=== PATIENT | male | born 1980 | race Caucasian/White ===

== ENCOUNTER 2019-10-21 12:22 | Observation (INO) ==
[~2019-10-21 12:22] MED LIST: DIPRIVAN VIAL ONE; NEOSTIGMINE INJ ONE; NORCURON INJ 10 MG VIAL ONE; QUELICIN (OR ANECTINE) ONE; ROBINUL ONE; ULTANE GAS IN ONE; VERSED ONE; ZOFRAN INJ 4 MG VIAL ONE
[2019-10-21 12:28] VITALS: BMI 54.8
--- NOTE | 2019-10-21 12:57 | DR.EXTPAIN ---
HPI Time seen Time Seen by Provider: 10/21/19 12:31 PCP Primary Care Physician: ned Complaint/Symptoms Chief Complaint:: pt was here monday and was dx with stones in his gallbladder and was told by er doctor to come back to the er. right side of abd and right upper chest pain COVID-19 Coronavirus risk:travel/contact w/high risk person: No Has patient experienced Coronavirus symptoms: No Nurses notes reviewed Nurses Notes Review: Yes Source History Provided: Patient Mode of arrival Mode of Arrival: Ambulatory Timing Onset of Chief Complaint: 10/18/19 Associated signs and symptoms Associated Signs and Symptoms: Abdominal Pain PMH PMH Past Medical History: Yes Past Medical History: GERD Past Surgical History: No Family History History of Family Medical Conditions: No Social History Does patient currently use any type of tobacco product: No Have you used tobacco products in the last 12 months: No Type of Tobacco Use: None Does any household member use tobacco: No Alcohol Use: None Do you use any recreational Drugs:: No Lives With: Family Lives Where: Home Travel Risk Coronavirus risk:travel/contact w/high risk person: No Has patient experienced Coronavirus symptoms: No Infectious screening In the last 2 months have you had wt loss of >10#?: NO Have you had fever, night sweats or hemotysis?: No Have you traveled outside the country in the last 6 months?: No Isolation: Standard ROS Review of Systems Constitutional: No Symptoms Reported Eyes: No Symptoms Reported ENTM: No Symptoms Reported Respiratoy: No Symptoms Reported Cardiovascular: No Symptoms Reported Gastrointestinal/Abdominal: Abdominal Pain and Nausea Genitourinary: No Symptoms Reported Neurological: No Symptoms Reported Musculoskeletal: No Symptoms Reported Integumentary: No Symptoms Reported Hematologic/Lymphatic: No Symptoms Reported Endocrine: No Symptoms Reported Psychiatric: No Symptoms Reported All Other Systems: Reviewed and Negative PE Vital Signs Vitals: Temperature 98.2 F Pulse Rate 96 Respiratory Rate 16 Blood Pressure [Left Arm] 155/60 Blood Pressure 153/84 O2 Sat by Pulse Oximetry 98 General Limitations: No Limitations General Appearance: Alert and In No Apparent Distress Head Head Exam: Normal Inspection, Atraumatic and Normocephalic Eyes Eye exam: Normal Appearance and EOMI ENT ENT Exam: Normal Exam and Normal Oropharynx Neck Neck Exam: Normal Inspection, Full ROM and Trachea Midline Chest Chest Inspection: Normal Inspection Respiratory Respiratory Exam: Normal Lung Sounds Bilat; negative Accessory Muscle Use Respiratory Exam: Bilateral: Clear to Auscultation Cardiovascular Cardiovascular Exam: Regular Rate Abdominal Exam Abdominal Exam: Normal Inspection, Normal Bowel Sounds, Soft, Distention (morbid obesity), Tenderness and Guarding; negative Rebound Extremities Extremities Exam: Normal Inspection and Tenderness Upper Extremities Shoulder Exam: Normal Inspection Arm Exam: Normal Inspection Elbow Exam: Normal Inspection Back Back Exam: Normal Inspection Neurological Neurological Exam: Alert, Oriented X3, CN II-XII Intact and Normal Gait Psychiatric Psychiatric Exam: Normal Affect and Normal Mood Skin Skin Exam: Normal Color COURSE Consultation Called: : Call Returned: : Consultation Comments: DR. Santos called and will check patient ROR Labs Reviewed Result Diagrams: 10/21/19 13:09 10/21/19 13:09 Laboratory: WBC 11.0 X10^3/uL (3.6-10.0) H 10/21/19 13:09 RBC 5.32 X10^6/uL (4.7-6.0) 10/21/19 13:09 Hgb 15.0 g/dL (13.5-18.0) 10/21/19 13:09 Hct 43.9 % (42.0-54.0) 10/21/19 13:09 MCV 82.6 fL (80.0-100.0) 10/21/19 13:09 MCH 28.2 pg (27.0-34.0) 10/21/19 13:09 MCHC 34.1 g/dL (33.0-35.0) 10/21/19 13:09 RDW 14.1 % (11.6-16.5) 10/21/19 13:09 Plt Count 247 X10^3/uL (150.0-450.0) 10/21/19 13:09 Plt Count Comment Adequate (ADEQUATE) 10/21/19 13:09 MPV 7.5 fL (7.4-11.0) 10/21/19 13:09 Neut % (Auto) 63.0 % (42.0-75.0) 10/21/19 13:09 Lymph % (Auto) 26.0 % (21.0-51.0) 10/21/19 13:09 [place] % (Auto) 5.0 % (0.0-13.0) 10/21/19 13:09 Eos % (Auto) 4.8 % (0.9-2.9) H 10/21/19 13:09 Baso % (Auto) 1.2 % (0.2-1.0) H 10/21/19 13:09 Neut # (Auto) 7.0 x10^3/uL (2.2-4.8) H 10/21/19 13:09 Lymph # (Auto) 2.9 X10^3/uL (1.3-2.9) 10/21/19 13:09 [place] # (Auto) 0.6 x10^3/uL (0.3-0.8) 10/21/19 13:09 Eos # (Auto) 0.5 x10^3/uL (0.0-0.2) H 10/21/19 13:09 Baso # (Auto) 0.1 X10^3/uL (0.0-0.1) 10/21/19 13:09 Absolute Nucleated RBC 0.1 /100WBC 10/21/19 13:09 Total Counted 100 10/21/19 13:09 Neutrophils % (Manual) 58 % (39-76) 10/21/19 13:09 Band Neutrophils % 4 % (0-10) 10/21/19 13:09 Lymphocytes % (Manual) 24 % (13-43) 10/21/19 13:09 Monocytes % (Manual) 6 % (4-9) 10/21/19 13:09 Eosinophils % (Manual) 8 % (0-6) H 10/21/19 13:09 Plt Morphology Comment Normal (NORMAL) 10/21/19 13:09 RBC Morphology Normal (NORMAL) 10/21/19 13:09 Sodium 134 mmol/L (136-145) L 10/21/19 13:09 Corrected Sodium TNP 10/21/19 13:09 Potassium 3.9 mmol/L (3.5-5.1) 10/21/19 13:09 Chloride 102 mmol/L (98-107) 10/21/19 13:09 Carbon Dioxide 25.7 mmol/L (21-32) 10/21/19 13:09 BUN 8 mg/dL (7-18) 10/21/19 13:09 Creatinine 0.90 mg/dL (0.70-1.30) 10/21/19 13:09 Est GFR (MDRD) Af Amer > 60 (>60) 10/21/19 13:09 Est GFR (MDRD) Non-Af > 60 (>60) 10/21/19 13:09 Glucose 100 mg/dL (65-99) H 10/21/19 13:09 Calcium 8.9 mg/dL (8.5-10.1) 10/21/19 13:09 Corrected Calcium TNP 10/21/19 13:09 Total Bilirubin 0.50 mg/dL (0.2-1.0) 10/21/19 13:09 AST 44 Units/L (15-37) H 10/21/19 13:09 ALT 71 Units/L (12-78) 10/21/19 13:09 Alkaline Phosphatase 86 Units/L (46-116) 10/21/19 13:09 Total Protein 7.6 g/dL (6.4-8.2) 10/21/19 13:09 Albumin 3.4 g/dL (3.4-5.0) 10/21/19 13:09 Globulin 4.2 g/dL (2.5-4.5) 10/21/19 13:09 Albumin/Globulin Ratio 0.8 Ratio (1.1-2.1) L 10/21/19 13:09 Lipase 144 Units/L (73-393) 10/21/19 13:09 Opioid Opioid Risk Tool Age (Cory box if 16-45): No History of Preadolescent Sexual Abuse: No Total: 0 Total Score Risk Category: Low Risk Copyright: Bandar SANCHEZ predicting aberrant behaviors
[2019-10-21 13:17] LABS: BASOPHILS # (AUTO) 0.1 X10^3/uL (0.0-0.1); BASOPHILS % (AUTO) 1.2 % (0.2-1.0); EOSINOPHILS # (AUTO) 0.5 x10^3/uL (0.0-0.2); EOSINOPHILS % (AUTO) 4.8 % (0.9-2.9); HEMATOCRIT 43.9 % (42.0-54.0); LYMPHOCYTES # (AUTO) 2.9 X10^3/uL (1.3-2.9); MEAN CORPUSCULAR HEMOGLOBIN 28.2 pg (27.0-34.0); MEAN CORPUSCULAR HGB CONC 34.1 g/dL (33.0-35.0); MEAN CORPUSCULAR VOLUME 82.6 fL (80.0-100.0); MEAN PLATELET VOLUME 7.5 fL (7.4-11.0); MONOCYTES # (AUTO) 0.6 x10^3/uL (0.3-0.8); PLATELET COUNT 247 X10^3/uL (150.0-450.0); RED BLOOD COUNT 5.32 X10^6/uL (4.7-6.0); RED CELL DISTRIBUTION WIDTH 14.1 % (11.6-16.5)
[2019-10-21 13:28] LABS: ALANINE AMINOTRANSFERASE 71 Units/L (12-78); ALBUMIN 3.4 g/dL (3.4-5.0); ALKALINE PHOSPHATASE 86 Units/L (46-116); ASPARTATE AMINO TRANSFERASE 44 Units/L (15-37); BLOOD UREA NITROGEN 8 mg/dL (7-18); CALCIUM 8.9 mg/dL (8.5-10.1); CARBON DIOXIDE 25.7 mmol/L (21-32); CHLORIDE 102 mmol/L (98-107); LIPASE 144 Units/L (73-393); SODIUM 134 mmol/L (136-145); TOTAL PROTEIN 7.6 g/dL (6.4-8.2); eGFR NON BLACK RACES > 60 (>60)
[2019-10-21 13:41] LABS: BAND NEUTROPHILS % 4 % (0-10); PLATELET MORPHOLOGY COMMENT NORMAL (NORMAL)
--- NOTE | 2019-10-21 14:30 | RAD ---
HISTORYRUQ PAINSTUDYPORTABLE AP CHESTCOMPARISONJULY 2019FINDINGSTHE LUNGS REMAIN CLEAR AND THE HEART AND MEDIASTINUM ARE UNREMARKABLE. THERE IS NO EDEMA OR EFFUSION OR CONGESTION.IMPRESSIONNO EVIDENCE FOR ACTIVE CARDIOPULMONARY DISEASEElectronically signed by: JOHN GARRETT (Oct 21, 2019 14:29:24)
[2019-10-21] MEDS ORDERED: LR 1000 ML IV 1,000 ML IV ONE (14:46)
[2019-10-21] MEDS ORDERED: ANCEF VIAL 1 GRAM ONE (14:46)
[2019-10-21] MEDS ORDERED: NS 100 ML IV 100 ML IV ONE (14:46)
[2019-10-21] MEDS ORDERED: DECADRON INJ ONE (15:02)
[2019-10-21] MEDS ORDERED: DILAUDID INJ ONE ×3 (15:03→17:53)
[2019-10-21] MEDS ORDERED: FENTANYL INJ 100 mcg ONE ×2 (15:03→16:00)
[2019-10-21] MEDS ORDERED: BACTROBAN TOPICAL OINT ONE (17:10)
[2019-10-21] MEDS ORDERED: REGLAN INJ 10 MG VIAL IVP PRN (17:29)
[2019-10-21] MEDS ORDERED: PHENERGAN INJ 25 MG IM PRN (17:29)
[2019-10-21] MEDS ORDERED: ZOFRAN INJ 4 MG VIAL IVP PRN (17:29)
[2019-10-21] MEDS ORDERED: BENADRYL INJ 50 MG VIAL IVP PRN (17:29)
[2019-10-21] MEDS: DILAUDID INJ IVP PRN ×4 (17:42→22:33)
[2019-10-21] MEDS ORDERED: ZOFRAN INJ 4 MG VIAL ONE (17:54)
[2019-10-21] MEDS: D5 1/2 NS 1000 ML 1,000 ML IV SCH (18:22)
[2019-10-22] MEDS: D5 1/2 NS 1000 ML 1,000 ML IV SCH ×3 (03:22→10:35)
[2019-10-22 05:49] LABS: BASOPHILS % (AUTO) 0.2 % (0.2-1.0); HEMATOCRIT 40.5 % (42.0-54.0); HEMOGLOBIN 13.8 g/dL (13.5-18.0); LYMPHOCYTES # (AUTO) 1.3 X10^3/uL (1.3-2.9); LYMPHOCYTES % (AUTO) 9.6 % (21.0-51.0); MEAN CORPUSCULAR HEMOGLOBIN 28.4 pg (27.0-34.0); MEAN CORPUSCULAR VOLUME 83.4 fL (80.0-100.0); MONOCYTES # (AUTO) 0.4 x10^3/uL (0.3-0.8); MONOCYTES % (AUTO) 2.8 % (0.0-13.0); NEUTROPHILS # (AUTO) 11.7 x10^3/uL (2.2-4.8); NEUTROPHILS % (AUTO) 87.4 % (42.0-75.0); PLATELET COUNT 261 X10^3/uL (150.0-450.0); RED BLOOD COUNT 4.85 X10^6/uL (4.7-6.0); RED CELL DISTRIBUTION WIDTH 14.2 % (11.6-16.5); WHITE BLOOD COUNT 13.4 X10^3/uL (3.6-10.0)
[2019-10-22] MEDS: DILAUDID INJ IVP PRN ×2 (05:55→09:02)
[2019-10-22 05:56] LABS: ALANINE AMINOTRANSFERASE 89 Units/L (12-78); ALKALINE PHOSPHATASE 74 Units/L (46-116); ASPARTATE AMINO TRANSFERASE 61 Units/L (15-37); BLOOD UREA NITROGEN 12 mg/dL (7-18); CALCIUM 8.3 mg/dL (8.5-10.1); CARBON DIOXIDE 26.4 mmol/L (21-32); CHLORIDE 103 mmol/L (98-107); COR CA(FOR HYPOALB) 9.1 mg/dL (8.5-10.1); COR NA(FOR HYPERGLY) 140 mmol/L (136-145); SODIUM 137 mmol/L (136-145); TOTAL PROTEIN 7.2 g/dL (6.4-8.2); eGFR NON BLACK RACES > 60 (>60)
[2019-10-22 08:16] VITALS: BP 114/67
--- NOTE | 2019-10-28 22:07 | DR.EXTPAIN ---
HPI Time seen Time Seen by Provider: 10/21/19 12:31 PCP Primary Care Physician: JAXON Complaint/Symptoms Chief Complaint:: pt was here monday and was dx with stones in his gallbladder and was told by er doctor to come back to the er. right side of abd and right upper chest pain COVID-19 Coronavirus risk:travel/contact w/high risk person: No Has patient experienced Coronavirus symptoms: No Source History Provided: Patient Mode of arrival Mode of Arrival: Ambulatory Timing Onset of Chief Complaint: 10/18/19 Associated signs and symptoms Associated Signs and Symptoms: Abdominal Pain PMH PMH Past Medical History: Yes Past Medical History: GERD Past Surgical History: Yes Family History History of Family Medical Conditions: No Family Medical History: Diabetes Mellitus, Cancer and Coronary Artery Disease Social History Does patient currently use any type of tobacco product: No Have you used tobacco products in the last 12 months: No Type of Tobacco Use: None Does any household member use tobacco: No Alcohol Use: Rarely Do you use any recreational Drugs:: No Lives With: Family Lives Where: Home Travel Risk Coronavirus risk:travel/contact w/high risk person: No Has patient experienced Coronavirus symptoms: No Infectious screening In the last 2 months have you had wt loss of >10#?: NO Have you had fever, night sweats or hemotysis?: No Have you traveled outside the country in the last 6 months?: No Isolation: Standard ROS Review of Systems Constitutional: No Symptoms Reported Eyes: No Symptoms Reported ENTM: No Symptoms Reported Respiratoy: No Symptoms Reported Cardiovascular: No Symptoms Reported Gastrointestinal/Abdominal: Abdominal Pain Genitourinary: No Symptoms Reported Neurological: No Symptoms Reported Musculoskeletal: No Symptoms Reported Integumentary: No Symptoms Reported Hematologic/Lymphatic: No Symptoms Reported Endocrine: No Symptoms Reported Psychiatric: No Symptoms Reported All Other Systems: Reviewed and Negative PE Vital Signs Vitals: Temperature 98.3 F Pulse Rate 85 Respiratory Rate 18 Blood Pressure [Left Arm] 155/60 Blood Pressure 138/67 O2 Sat by Pulse Oximetry 99 General Limitations: No Limitations Head Head Exam: Normal Inspection, Atraumatic and Normocephalic Eyes Eye exam: Normal Appearance and EOMI ENT ENT Exam: Normal Exam and Normal Oropharynx Neck Neck Exam: Normal Inspection, Full ROM and Trachea Midline Chest Chest Inspection: Normal Inspection Respiratory Respiratory Exam: Normal Lung Sounds Bilat; negative Respiratory Distress Respiratory Exam: Bilateral: Clear to Auscultation Cardiovascular Cardiovascular Exam: Regular Rate Abdominal Exam Abdominal Exam: Normal Inspection, Normal Bowel Sounds, Soft, Tenderness and Rebound; negative Distention, Rigidity, Dimnished Bowel Sounds and Hyperactive Bowel Sounds Abdominal Tenderness: RUQ Extremities Extremities Exam: Normal Inspection Upper Extremities Shoulder Exam: Normal Inspection Arm Exam: Normal Inspection Elbow Exam: Normal Inspection Forearm Exam: Normal Inspection Hand Exam: Normal Inspection Neuromotor Exam: Normal Exam Neurosensory Exam: Normal Exam Lower Extremities Hip/Pelvis Exam: Normal Inspection Back Back Exam: Normal Inspection and Full ROM Neurological Neurological Exam: Alert, Oriented X3, CN II-XII Intact and Normal Gait Psychiatric Psychiatric Exam: Normal Affect Skin Skin Exam: Normal Color ROR Labs Reviewed Result Diagrams: 10/22/19 05:13 10/22/19 05:13 Laboratory: WBC 11.0 X10^3/uL (3.6-10.0) H 10/21/19 13:09 RBC 5.32 X10^6/uL (4.7-6.0) 10/21/19 13:09 Hgb 15.0 g/dL (13.5-18.0) 10/21/19 13:09 Hct 43.9 % (42.0-54.0) 10/21/19 13:09 MCV 82.6 fL (80.0-100.0) 10/21/19 13:09 MCH 28.2 pg (27.0-34.0) 10/21/19 13:09 MCHC 34.1 g/dL (33.0-35.0) 10/21/19 13:09 RDW 14.1 % (11.6-16.5) 10/21/19 13:09 Plt Count 247 X10^3/uL (150.0-450.0) 10/21/19 13:09 Plt Count Comment Adequate (ADEQUATE) 10/21/19 13:09 MPV 7.5 fL (7.4-11.0) 10/21/19 13:09 Neut % (Auto) 63.0 % (42.0-75.0) 10/21/19 13:09 Lymph % (Auto) 26.0 % (21.0-51.0) 10/21/19 13:09 [place] % (Auto) 5.0 % (0.0-13.0) 10/21/19 13:09 Eos % (Auto) 4.8 % (0.9-2.9) H 10/21/19 13:09 Baso % (Auto) 1.2 % (0.2-1.0) H 10/21/19 13:09 Neut # (Auto) 7.0 x10^3/uL (2.2-4.8) H 10/21/19 13:09 Lymph # (Auto) 2.9 X10^3/uL (1.3-2.9) 10/21/19 13:09 [place] # (Auto) 0.6 x10^3/uL (0.3-0.8) 10/21/19 13:09 Eos # (Auto) 0.5 x10^3/uL (0.0-0.2) H 10/21/19 13:09 Baso # (Auto) 0.1 X10^3/uL (0.0-0.1) 10/21/19 13:09 Absolute Nucleated RBC 0.1 /100WBC 10/21/19 13:09 Total Counted 100 10/21/19 13:09 Neutrophils % (Manual) 58 % (39-76) 10/21/19 13:09 Band Neutrophils % 4 % (0-10) 10/21/19 13:09 Lymphocytes % (Manual) 24 % (13-43) 10/21/19 13:09 Monocytes % (Manual) 6 % (4-9) 10/21/19 13:09 Eosinophils % (Manual) 8 % (0-6) H 10/21/19 13:09 Plt Morphology Comment Normal (NORMAL) 10/21/19 13:09 RBC Morphology Normal (NORMAL) 10/21/19 13:09 Sodium 134 mmol/L (136-145) L 10/21/19 13:09 Corrected Sodium TNP 10/21/19 13:09 Potassium 3.9 mmol/L (3.5-5.1) 10/21/19 13:09 Chloride 102 mmol/L (98-107) 10/21/19 13:09 Carbon Dioxide 25.7 mmol/L (21-32) 10/21/19 13:09 BUN 8 mg/dL (7-18) 10/21/19 13:09 Creatinine 0.90 mg/dL (0.70-1.30) 10/21/19 13:09 Est GFR (MDRD) Af Amer > 60 (>60) 10/21/19 13:09 Est GFR (MDRD) Non-Af > 60 (>60) 10/21/19 13:09 Glucose 100 mg/dL (65-99) H 10/21/19 13:09 Calcium 8.9 mg/dL (8.5-10.1) 10/21/19 13:09 Corrected Calcium TNP 10/21/19 13:09 Total Bilirubin 0.50 mg/dL (0.2-1.0) 10/21/19 13:09 AST 44 Units/L (15-37) H 10/21/19 13:09 ALT 71 Units/L (12-78) 10/21/19 13:09 Alkaline Phosphatase 86 Units/L (46-116) 10/21/19 13:09 Total Protein 7.6 g/dL (6.4-8.2) 10/21/19 13:09 Albumin 3.4 g/dL (3.4-5.0) 10/21/19 13:09 Globulin 4.2 g/dL (2.5-4.5) 10/21/19 13:09 Albumin/Globulin Ratio 0.8 Ratio (1.1-2.1) L 10/21/19 13:09 Lipase 144 Units/L (73-393) 10/21/19 13:09 Tissue Pathology To follow 10/21/19 16:55 Opioid Opioid Risk Tool Age (Cory box if 16-45): Yes History of Preadolescent Sexual Abuse: No Total: 1 Total Score Risk Category: Low Risk Copyright: Bandar SANCHEZ predicting aberrant behaviors Instructions Instructions: Incentive Spirometer Wound Infection, [id number]-[id number] Hand Washing, Jxnr-[id number] How to Change Your Dressing, Afcr-ai-Cbwy Laparoscopic Cholecystectomy, Care After Personal Hygiene Stitches, [place], or Adhesive Wound Closure, Bqsw-aq-Ubvl Incision Care, Adult, Ldtn-vx-[id number] Preventing Constipation After Surgery Forms: Excuse From Work or School Precautions for COVID19 Patient Portal Social Distancing
--- NOTE | 2019-11-01 18:26 | DR.EXTPAIN ---
HPI Time seen Time Seen by Provider: 10/21/19 12:31 PCP Primary Care Physician: JAXON Complaint/Symptoms Chief Complaint:: pt was here monday and was dx with stones in his gallbladder and was told by er doctor to come back to the er. right side of abd and right upper chest pain COVID-19 Coronavirus risk:travel/contact w/high risk person: No Has patient experienced Coronavirus symptoms: No Source History Provided: Patient Mode of arrival Mode of Arrival: Ambulatory Timing Onset of Chief Complaint: 10/18/19 Associated signs and symptoms Associated Signs and Symptoms: Abdominal Pain PMH PMH Past Medical History: Yes Past Medical History: GERD Past Surgical History: Yes Family History History of Family Medical Conditions: No Family Medical History: Diabetes Mellitus, Cancer and Coronary Artery Disease Social History Does patient currently use any type of tobacco product: No Have you used tobacco products in the last 12 months: No Type of Tobacco Use: None Does any household member use tobacco: No Alcohol Use: Rarely Do you use any recreational Drugs:: No Lives With: Family Lives Where: Home Travel Risk Coronavirus risk:travel/contact w/high risk person: No Has patient experienced Coronavirus symptoms: No Infectious screening In the last 2 months have you had wt loss of >10#?: NO Have you had fever, night sweats or hemotysis?: No Have you traveled outside the country in the last 6 months?: No Isolation: Standard ROS Review of Systems Constitutional: No Symptoms Reported Eyes: No Symptoms Reported ENTM: No Symptoms Reported Respiratoy: No Symptoms Reported Cardiovascular: No Symptoms Reported Gastrointestinal/Abdominal: Abdominal Pain and Vomiting Genitourinary: No Symptoms Reported Neurological: No Symptoms Reported Musculoskeletal: No Symptoms Reported Integumentary: No Symptoms Reported Hematologic/Lymphatic: No Symptoms Reported Endocrine: No Symptoms Reported and [place] Psychiatric: No Symptoms Reported All Other Systems: Reviewed and Negative PE Vital Signs Vitals: Temperature 98.3 F Pulse Rate 85 Respiratory Rate 18 Blood Pressure [Left Arm] 155/60 Blood Pressure 138/67 O2 Sat by Pulse Oximetry 99 General Limitations: No Limitations General Appearance: Alert and In No Apparent Distress Head Head Exam: Normal Inspection, Atraumatic and Normocephalic Eyes Eye exam: Normal Appearance and EOMI ENT ENT Exam: Normal Exam Neck Neck Exam: Normal Inspection, Full ROM and Trachea Midline Chest Chest Inspection: Normal Inspection Respiratory Respiratory Exam: Normal Lung Sounds Bilat; negative Respiratory Distress Respiratory Exam: Bilateral: Clear to Auscultation Cardiovascular Cardiovascular Exam: Regular Rate Abdominal Exam Abdominal Exam: Normal Inspection, Normal Bowel Sounds, Soft and Tenderness; negative Distention and Guarding Abdominal Tenderness: RUQ Extremities Extremities Exam: Normal Inspection and Full ROM Lower Extremities Gait Exam: Observed and Normal Back Back Exam: Normal Inspection and Full ROM Neurological Neurological Exam: Alert, Oriented X3 and CN II-XII Intact Psychiatric Psychiatric Exam: Normal Affect and Normal Mood Skin Skin Exam: negative Rash ROR Labs Reviewed Result Diagrams: 10/22/19 05:13 10/22/19 05:13 Laboratory: WBC 11.0 X10^3/uL (3.6-10.0) H 10/21/19 13:09 RBC 5.32 X10^6/uL (4.7-6.0) 10/21/19 13:09 Hgb 15.0 g/dL (13.5-18.0) 10/21/19 13:09 Hct 43.9 % (42.0-54.0) 10/21/19 13:09 MCV 82.6 fL (80.0-100.0) 10/21/19 13:09 MCH 28.2 pg (27.0-34.0) 10/21/19 13:09 MCHC 34.1 g/dL (33.0-35.0) 10/21/19 13:09 RDW 14.1 % (11.6-16.5) 10/21/19 13:09 Plt Count 247 X10^3/uL (150.0-450.0) 10/21/19 13:09 Plt Count Comment Adequate (ADEQUATE) 10/21/19 13:09 MPV 7.5 fL (7.4-11.0) 10/21/19 13:09 Neut % (Auto) 63.0 % (42.0-75.0) 10/21/19 13:09 Lymph % (Auto) 26.0 % (21.0-51.0) 10/21/19 13:09 [place] % (Auto) 5.0 % (0.0-13.0) 10/21/19 13:09 Eos % (Auto) 4.8 % (0.9-2.9) H 10/21/19 13:09 Baso % (Auto) 1.2 % (0.2-1.0) H 10/21/19 13:09 Neut # (Auto) 7.0 x10^3/uL (2.2-4.8) H 10/21/19 13:09 Lymph # (Auto) 2.9 X10^3/uL (1.3-2.9) 10/21/19 13:09 [place] # (Auto) 0.6 x10^3/uL (0.3-0.8) 10/21/19 13:09 Eos # (Auto) 0.5 x10^3/uL (0.0-0.2) H 10/21/19 13:09 Baso # (Auto) 0.1 X10^3/uL (0.0-0.1) 10/21/19 13:09 Absolute Nucleated RBC 0.1 /100WBC 10/21/19 13:09 Total Counted 100 10/21/19 13:09 Neutrophils % (Manual) 58 % (39-76) 10/21/19 13:09 Band Neutrophils % 4 % (0-10) 10/21/19 13:09 Lymphocytes % (Manual) 24 % (13-43) 10/21/19 13:09 Monocytes % (Manual) 6 % (4-9) 10/21/19 13:09 Eosinophils % (Manual) 8 % (0-6) H 10/21/19 13:09 Plt Morphology Comment Normal (NORMAL) 10/21/19 13:09 RBC Morphology Normal (NORMAL) 10/21/19 13:09 Sodium 134 mmol/L (136-145) L 10/21/19 13:09 Corrected Sodium TNP 10/21/19 13:09 Potassium 3.9 mmol/L (3.5-5.1) 10/21/19 13:09 Chloride 102 mmol/L (98-107) 10/21/19 13:09 Carbon Dioxide 25.7 mmol/L (21-32) 10/21/19 13:09 BUN 8 mg/dL (7-18) 10/21/19 13:09 Creatinine 0.90 mg/dL (0.70-1.30) 10/21/19 13:09 Est GFR (MDRD) Af Amer > 60 (>60) 10/21/19 13:09 Est GFR (MDRD) Non-Af > 60 (>60) 10/21/19 13:09 Glucose 100 mg/dL (65-99) H 10/21/19 13:09 Calcium 8.9 mg/dL (8.5-10.1) 10/21/19 13:09 Corrected Calcium TNP 10/21/19 13:09 Total Bilirubin 0.50 mg/dL (0.2-1.0) 10/21/19 13:09 AST 44 Units/L (15-37) H 10/21/19 13:09 ALT 71 Units/L (12-78) 10/21/19 13:09 Alkaline Phosphatase 86 Units/L (46-116) 10/21/19 13:09 Total Protein 7.6 g/dL (6.4-8.2) 10/21/19 13:09 Albumin 3.4 g/dL (3.4-5.0) 10/21/19 13:09 Globulin 4.2 g/dL (2.5-4.5) 10/21/19 13:09 Albumin/Globulin Ratio 0.8 Ratio (1.1-2.1) L 10/21/19 13:09 Lipase 144 Units/L (73-393) 10/21/19 13:09 Tissue Pathology To follow 10/21/19 16:55 Opioid Opioid Risk Tool Age (Cory box if 16-45): Yes History of Preadolescent Sexual Abuse: No Total: 1 Total Score Risk Category: Low Risk Copyright: Bandar SANCHEZ predicting aberrant behaviors Instructions Instructions: Incentive Spirometer Wound Infection, Fqep-ke-Iqhq Hand Washing, Xzcm-rv-[id number] How to Change Your Dressing, Uvee-wx-Zdgl Laparoscopic Cholecystectomy, Care After Personal Hygiene Stitches, [place], or Adhesive Wound Closure, Alid-ku-Mlpp Incision Care, Adult, Xpcp-ub-Nyer Preventing Constipation After Surgery Forms: Excuse From Work or School Precautions for COVID19 Patient Portal Social Distancing
--- NOTE | 2019-11-01 18:32 | DR.EXTPAIN ---
HPI Time seen Time Seen by Provider: 10/21/19 12:31 PCP Primary Care Physician: JAXON Complaint/Symptoms Chief Complaint:: pt was here monday and was dx with stones in his gallbladder and was told by er doctor to come back to the er. right side of abd and right upper chest pain COVID-19 Coronavirus risk:travel/contact w/high risk person: No Has patient experienced Coronavirus symptoms: No Source History Provided: Patient Mode of arrival Mode of Arrival: Ambulatory Timing Onset of Chief Complaint: 10/18/19 Associated signs and symptoms Associated Signs and Symptoms: Abdominal Pain PMH PMH Past Medical History: Yes Past Medical History: GERD Past Surgical History: Yes Family History History of Family Medical Conditions: No Family Medical History: Diabetes Mellitus, Cancer and Coronary Artery Disease Social History Does patient currently use any type of tobacco product: No Have you used tobacco products in the last 12 months: No Type of Tobacco Use: None Does any household member use tobacco: No Alcohol Use: Rarely Do you use any recreational Drugs:: No Lives With: Family Lives Where: Home Travel Risk Coronavirus risk:travel/contact w/high risk person: No Has patient experienced Coronavirus symptoms: No Infectious screening In the last 2 months have you had wt loss of >10#?: NO Have you had fever, night sweats or hemotysis?: No Have you traveled outside the country in the last 6 months?: No Isolation: Standard ROS Review of Systems Constitutional: No Symptoms Reported Eyes: No Symptoms Reported ENTM: No Symptoms Reported Respiratoy: No Symptoms Reported Cardiovascular: No Symptoms Reported Gastrointestinal/Abdominal: Abdominal Pain Genitourinary: No Symptoms Reported Neurological: No Symptoms Reported Musculoskeletal: No Symptoms Reported Integumentary: No Symptoms Reported Endocrine: No Symptoms Reported Psychiatric: No Symptoms Reported Unable to Obtain Due To: Altered mental status PE Vital Signs Vitals: Temperature 98.3 F Pulse Rate 85 Respiratory Rate 18 Blood Pressure [Left Arm] 155/60 Blood Pressure 138/67 O2 Sat by Pulse Oximetry 99 ROR Labs Reviewed Result Diagrams: 10/22/19 05:13 10/22/19 05:13 Laboratory: WBC 11.0 X10^3/uL (3.6-10.0) H 10/21/19 13:09 RBC 5.32 X10^6/uL (4.7-6.0) 10/21/19 13:09 Hgb 15.0 g/dL (13.5-18.0) 10/21/19 13:09 Hct 43.9 % (42.0-54.0) 10/21/19 13:09 MCV 82.6 fL (80.0-100.0) 10/21/19 13:09 MCH 28.2 pg (27.0-34.0) 10/21/19 13:09 MCHC 34.1 g/dL (33.0-35.0) 10/21/19 13:09 RDW 14.1 % (11.6-16.5) 10/21/19 13:09 Plt Count 247 X10^3/uL (150.0-450.0) 10/21/19 13:09 Plt Count Comment Adequate (ADEQUATE) 10/21/19 13:09 MPV 7.5 fL (7.4-11.0) 10/21/19 13:09 Neut % (Auto) 63.0 % (42.0-75.0) 10/21/19 13:09 Lymph % (Auto) 26.0 % (21.0-51.0) 10/21/19 13:09 [place] % (Auto) 5.0 % (0.0-13.0) 10/21/19 13:09 Eos % (Auto) 4.8 % (0.9-2.9) H 10/21/19 13:09 Baso % (Auto) 1.2 % (0.2-1.0) H 10/21/19 13:09 Neut # (Auto) 7.0 x10^3/uL (2.2-4.8) H 10/21/19 13:09 Lymph # (Auto) 2.9 X10^3/uL (1.3-2.9) 10/21/19 13:09 [place] # (Auto) 0.6 x10^3/uL (0.3-0.8) 10/21/19 13:09 Eos # (Auto) 0.5 x10^3/uL (0.0-0.2) H 10/21/19 13:09 Baso # (Auto) 0.1 X10^3/uL (0.0-0.1) 10/21/19 13:09 Absolute Nucleated RBC 0.1 /100WBC 10/21/19 13:09 Total Counted 100 10/21/19 13:09 Neutrophils % (Manual) 58 % (39-76) 10/21/19 13:09 Band Neutrophils % 4 % (0-10) 10/21/19 13:09 Lymphocytes % (Manual) 24 % (13-43) 10/21/19 13:09 Monocytes % (Manual) 6 % (4-9) 10/21/19 13:09 Eosinophils % (Manual) 8 % (0-6) H 10/21/19 13:09 Plt Morphology Comment Normal (NORMAL) 10/21/19 13:09 RBC Morphology Normal (NORMAL) 10/21/19 13:09 Sodium 134 mmol/L (136-145) L 10/21/19 13:09 Corrected Sodium TNP 10/21/19 13:09 Potassium 3.9 mmol/L (3.5-5.1) 10/21/19 13:09 Chloride 102 mmol/L (98-107) 10/21/19 13:09 Carbon Dioxide 25.7 mmol/L (21-32) 10/21/19 13:09 BUN 8 mg/dL (7-18) 10/21/19 13:09 Creatinine 0.90 mg/dL (0.70-1.30) 10/21/19 13:09 Est GFR (MDRD) Af Amer > 60 (>60) 10/21/19 13:09 Est GFR (MDRD) Non-Af > 60 (>60) 10/21/19 13:09 Glucose 100 mg/dL (65-99) H 10/21/19 13:09 Calcium 8.9 mg/dL (8.5-10.1) 10/21/19 13:09 Corrected Calcium TNP 10/21/19 13:09 Total Bilirubin 0.50 mg/dL (0.2-1.0) 10/21/19 13:09 AST 44 Units/L (15-37) H 10/21/19 13:09 ALT 71 Units/L (12-78) 10/21/19 13:09 Alkaline Phosphatase 86 Units/L (46-116) 10/21/19 13:09 Total Protein 7.6 g/dL (6.4-8.2) 10/21/19 13:09 Albumin 3.4 g/dL (3.4-5.0) 10/21/19 13:09 Globulin 4.2 g/dL (2.5-4.5) 10/21/19 13:09 Albumin/Globulin Ratio 0.8 Ratio (1.1-2.1) L 10/21/19 13:09 Lipase 144 Units/L (73-393) 10/21/19 13:09 Tissue Pathology To follow 10/21/19 16:55 Opioid Opioid Risk Tool Age (Cory box if 16-45): Yes History of Preadolescent Sexual Abuse: No Total: 1 Total Score Risk Category: Low Risk Copyright: Bandar predicting aberrant behaviors Instructions Instructions: Incentive Spirometer Wound Infection, Ncfr-zi-Liwj Hand Washing, Svbi-mx-Hlja How to Change Your Dressing, Xskg-tq-Ttlu Laparoscopic Cholecystectomy, Care After Personal Hygiene Stitches, Nani, or Adhesive Wound Closure, Awrc-hu-Ntpo Incision Care, Adult, Vgiz-xd-Dolo Preventing Constipation After Surgery Forms: Excuse From Work or School Precautions for COVID19 Patient Portal Social Distancing
--- NOTE | 2019-11-08 03:28 | DR.EXTPAIN ---
HPI Time seen Time Seen by Provider: 10/21/19 12:31 PCP Primary Care Physician: JAXON Complaint/Symptoms Chief Complaint:: pt was here monday and was dx with stones in his gallbladder and was told by er doctor to come back to the er. right side of abd and right upper chest pain COVID-19 Coronavirus risk:travel/contact w/high risk person: No Has patient experienced Coronavirus symptoms: No Source History Provided: Patient Mode of arrival Mode of Arrival: Ambulatory Timing Onset of Chief Complaint: 10/18/19 Associated signs and symptoms Associated Signs and Symptoms: Abdominal Pain PMH PMH Past Medical History: Yes Past Medical History: GERD Past Surgical History: Yes Family History History of Family Medical Conditions: No Family Medical History: Diabetes Mellitus, Cancer and Coronary Artery Disease Social History Does patient currently use any type of tobacco product: No Have you used tobacco products in the last 12 months: No Type of Tobacco Use: None Does any household member use tobacco: No Alcohol Use: Rarely Do you use any recreational Drugs:: No Lives With: Family Lives Where: Home Travel Risk Coronavirus risk:travel/contact w/high risk person: No Has patient experienced Coronavirus symptoms: No Infectious screening In the last 2 months have you had wt loss of >10#?: NO Have you had fever, night sweats or hemotysis?: No Have you traveled outside the country in the last 6 months?: No Isolation: Standard PE Vital Signs Vitals: Temperature 98.3 F Pulse Rate 85 Respiratory Rate 18 Blood Pressure [Left Arm] 155/60 Blood Pressure 138/67 O2 Sat by Pulse Oximetry 99 ROR Labs Reviewed Result Diagrams: 10/22/19 05:13 10/22/19 05:13 Laboratory: WBC 11.0 X10^3/uL (3.6-10.0) H 10/21/19 13:09 RBC 5.32 X10^6/uL (4.7-6.0) 10/21/19 13:09 Hgb 15.0 g/dL (13.5-18.0) 10/21/19 13:09 Hct 43.9 % (42.0-54.0) 10/21/19 13:09 MCV 82.6 fL (80.0-100.0) 10/21/19 13:09 MCH 28.2 pg (27.0-34.0) 10/21/19 13:09 MCHC 34.1 g/dL (33.0-35.0) 10/21/19 13:09 RDW 14.1 % (11.6-16.5) 10/21/19 13:09 Plt Count 247 X10^3/uL (150.0-450.0) 10/21/19 13:09 Plt Count Comment Adequate (ADEQUATE) 10/21/19 13:09 MPV 7.5 fL (7.4-11.0) 10/21/19 13:09 Neut % (Auto) 63.0 % (42.0-75.0) 10/21/19 13:09 Lymph % (Auto) 26.0 % (21.0-51.0) 10/21/19 13:09 [place] % (Auto) 5.0 % (0.0-13.0) 10/21/19 13:09 Eos % (Auto) 4.8 % (0.9-2.9) H 10/21/19 13:09 Baso % (Auto) 1.2 % (0.2-1.0) H 10/21/19 13:09 Neut # (Auto) 7.0 x10^3/uL (2.2-4.8) H 10/21/19 13:09 Lymph # (Auto) 2.9 X10^3/uL (1.3-2.9) 10/21/19 13:09 [place] # (Auto) 0.6 x10^3/uL (0.3-0.8) 10/21/19 13:09 Eos # (Auto) 0.5 x10^3/uL (0.0-0.2) H 10/21/19 13:09 Baso # (Auto) 0.1 X10^3/uL (0.0-0.1) 10/21/19 13:09 Absolute Nucleated RBC 0.1 /100WBC 10/21/19 13:09 Total Counted 100 10/21/19 13:09 Neutrophils % (Manual) 58 % (39-76) 10/21/19 13:09 Band Neutrophils % 4 % (0-10) 10/21/19 13:09 Lymphocytes % (Manual) 24 % (13-43) 10/21/19 13:09 Monocytes % (Manual) 6 % (4-9) 10/21/19 13:09 Eosinophils % (Manual) 8 % (0-6) H 10/21/19 13:09 Plt Morphology Comment Normal (NORMAL) 10/21/19 13:09 RBC Morphology Normal (NORMAL) 10/21/19 13:09 Sodium 134 mmol/L (136-145) L 10/21/19 13:09 Corrected Sodium TNP 10/21/19 13:09 Potassium 3.9 mmol/L (3.5-5.1) 10/21/19 13:09 Chloride 102 mmol/L (98-107) 10/21/19 13:09 Carbon Dioxide 25.7 mmol/L (21-32) 10/21/19 13:09 BUN 8 mg/dL (7-18) 10/21/19 13:09 Creatinine 0.90 mg/dL (0.70-1.30) 10/21/19 13:09 Est GFR (MDRD) Af Amer > 60 (>60) 10/21/19 13:09 Est GFR (MDRD) Non-Af > 60 (>60) 10/21/19 13:09 Glucose 100 mg/dL (65-99) H 10/21/19 13:09 Calcium 8.9 mg/dL (8.5-10.1) 10/21/19 13:09 Corrected Calcium TNP 10/21/19 13:09 Total Bilirubin 0.50 mg/dL (0.2-1.0) 10/21/19 13:09 AST 44 Units/L (15-37) H 10/21/19 13:09 ALT 71 Units/L (12-78) 10/21/19 13:09 Alkaline Phosphatase 86 Units/L (46-116) 10/21/19 13:09 Total Protein 7.6 g/dL (6.4-8.2) 10/21/19 13:09 Albumin 3.4 g/dL (3.4-5.0) 10/21/19 13:09 Globulin 4.2 g/dL (2.5-4.5) 10/21/19 13:09 Albumin/Globulin Ratio 0.8 Ratio (1.1-2.1) L 10/21/19 13:09 Lipase 144 Units/L (73-393) 07/20/20 13:09 Tissue Pathology To follow 10/21/19 16:55 Opioid Opioid Risk Tool Age (Cory box if 16-45): Yes History of Preadolescent Sexual Abuse: No Total: 1 Total Score Risk Category: Low Risk Copyright: Bandar SANCHEZ predicting aberrant behaviors Diagnosis Discharge Problem: Abdominal pain in male Cholelithiasis Qualifiers: Cholelithiasis location: gallbladder Cholecystitis presence: without cholecystitis Biliary obstruction: without biliary obstruction Qualified Code(s): K80.20 - Calculus of gallbladder without cholecystitis without obstruction Instructions Instructions: Incentive Spirometer Wound Infection, Pkix-lj-Bumd Hand Washing, Qset-ty-Cabp How to Change Your Dressing, Olue-yv-Coyt Laparoscopic Cholecystectomy, Care After Personal Hygiene Stitches, Nani, or Adhesive Wound Closure, Ruli-zu-Nqrb Incision Care, Adult, Rrqi-yl-Wlnn Preventing Constipation After Surgery Forms: Excuse From Work or School Precautions for COVID19 Patient Portal Social Distancing
--- NOTE | 2019-11-11 08:53 | DR.EXTPAIN ---
HPI Time seen Time Seen by Provider: 10/21/19 12:31 PCP Primary Care Physician: JAXON Complaint/Symptoms Chief Complaint:: pt was here monday and was dx with stones in his gallbladder and was told by er doctor to come back to the er. right side of abd and right upper chest pain COVID-19 Coronavirus risk:travel/contact w/high risk person: No Has patient experienced Coronavirus symptoms: No Source History Provided: Patient Mode of arrival Mode of Arrival: Ambulatory Timing Onset of Chief Complaint: 10/18/19 Associated signs and symptoms Associated Signs and Symptoms: Abdominal Pain PMH PMH Past Medical History: Yes Past Medical History: GERD Past Surgical History: Yes Family History History of Family Medical Conditions: No Family Medical History: Diabetes Mellitus, Cancer and Coronary Artery Disease Social History Does patient currently use any type of tobacco product: No Have you used tobacco products in the last 12 months: No Type of Tobacco Use: None Does any household member use tobacco: No Alcohol Use: Rarely Do you use any recreational Drugs:: No Lives With: Family Lives Where: Home Travel Risk Coronavirus risk:travel/contact w/high risk person: No Has patient experienced Coronavirus symptoms: No Infectious screening In the last 2 months have you had wt loss of >10#?: NO Have you had fever, night sweats or hemotysis?: No Have you traveled outside the country in the last 6 months?: No Isolation: Standard PE Vital Signs Vitals: Temperature 98.3 F Pulse Rate 85 Respiratory Rate 18 Blood Pressure [Left Arm] 155/60 Blood Pressure 138/67 O2 Sat by Pulse Oximetry 99 Abdominal Exam Abdominal Exam: Normal Bowel Sounds, Soft and Tenderness; negative Distention and Guarding ROR Labs Reviewed Result Diagrams: 10/22/19 05:13 10/22/19 05:13 Laboratory: WBC 11.0 X10^3/uL (3.6-10.0) H 10/21/19 13:09 RBC 5.32 X10^6/uL (4.7-6.0) 10/21/19 13:09 Hgb 15.0 g/dL (13.5-18.0) 10/21/19 13:09 Hct 43.9 % (42.0-54.0) 10/21/19 13:09 MCV 82.6 fL (80.0-100.0) 10/21/19 13:09 MCH 28.2 pg (27.0-34.0) 10/21/19 13:09 MCHC 34.1 g/dL (33.0-35.0) 10/21/19 13:09 RDW 14.1 % (11.6-16.5) 10/21/19 13:09 Plt Count 247 X10^3/uL (150.0-450.0) 10/21/19 13:09 Plt Count Comment Adequate (ADEQUATE) 10/21/19 13:09 MPV 7.5 fL (7.4-11.0) 10/21/19 13:09 Neut % (Auto) 63.0 % (42.0-75.0) 10/21/19 13:09 Lymph % (Auto) 26.0 % (21.0-51.0) 10/21/19 13:09 [place] % (Auto) 5.0 % (0.0-13.0) 10/21/19 13:09 Eos % (Auto) 4.8 % (0.9-2.9) H 10/21/19 13:09 Baso % (Auto) 1.2 % (0.2-1.0) H 10/21/19 13:09 Neut # (Auto) 7.0 x10^3/uL (2.2-4.8) H 10/21/19 13:09 Lymph # (Auto) 2.9 X10^3/uL (1.3-2.9) 10/21/19 13:09 [place] # (Auto) 0.6 x10^3/uL (0.3-0.8) 10/21/19 13:09 Eos # (Auto) 0.5 x10^3/uL (0.0-0.2) H 10/21/19 13:09 Baso # (Auto) 0.1 X10^3/uL (0.0-0.1) 10/21/19 13:09 Absolute Nucleated RBC 0.1 /100WBC 10/21/19 13:09 Total Counted 100 10/21/19 13:09 Neutrophils % (Manual) 58 % (39-76) 10/21/19 13:09 Band Neutrophils % 4 % (0-10) 10/21/19 13:09 Lymphocytes % (Manual) 24 % (13-43) 10/21/19 13:09 Monocytes % (Manual) 6 % (4-9) 10/21/19 13:09 Eosinophils % (Manual) 8 % (0-6) H 10/21/19 13:09 Plt Morphology Comment Normal (NORMAL) 10/21/19 13:09 RBC Morphology Normal (NORMAL) 10/21/19 13:09 Sodium 134 mmol/L (136-145) L 10/21/19 13:09 Corrected Sodium TNP 10/21/19 13:09 Potassium 3.9 mmol/L (3.5-5.1) 10/21/19 13:09 Chloride 102 mmol/L (98-107) 10/21/19 13:09 Carbon Dioxide 25.7 mmol/L (21-32) 10/21/19 13:09 BUN 8 mg/dL (7-18) 10/21/19 13:09 Creatinine 0.90 mg/dL (0.70-1.30) 10/21/19 13:09 Est GFR (MDRD) Af Amer > 60 (>60) 10/21/19 13:09 Est GFR (MDRD) Non-Af > 60 (>60) 10/21/19 13:09 Glucose 100 mg/dL (65-99) H 10/21/19 13:09 Calcium 8.9 mg/dL (8.5-10.1) 10/21/19 13:09 Corrected Calcium TNP 10/21/19 13:09 Total Bilirubin 0.50 mg/dL (0.2-1.0) 10/21/19 13:09 AST 44 Units/L (15-37) H 10/21/19 13:09 ALT 71 Units/L (12-78) 10/21/19 13:09 Alkaline Phosphatase 86 Units/L (46-116) 10/21/19 13:09 Total Protein 7.6 g/dL (6.4-8.2) 10/21/19 13:09 Albumin 3.4 g/dL (3.4-5.0) 10/21/19 13:09 Globulin 4.2 g/dL (2.5-4.5) 10/21/19 13:09 Albumin/Globulin Ratio 0.8 Ratio (1.1-2.1) L 10/21/19 13:09 Lipase 144 Units/L (73-393) 10/21/19 13:09 Tissue Pathology To follow 10/21/19 16:55 Opioid Opioid Risk Tool Age (Cory box if 16-45): Yes History of Preadolescent Sexual Abuse: No Total: 1 Total Score Risk Category: Low Risk Copyright: Bandar SANCHEZ predicting aberrant behaviors Diagnosis Discharge Problem: Abdominal pain in male Cholelithiasis Qualifiers: Cholelithiasis location: gallbladder Cholecystitis presence: without cholecystitis Biliary obstruction: without biliary obstruction Qualified Code(s): K80.20 - Calculus of gallbladder without cholecystitis without obstruction Instructions Instructions: Incentive Spirometer Wound Infection, Rvlo-ad-Tdln Hand Washing, Xjgr-uu-Oxcw How to Change Your Dressing, Isld-dw-Xyvz Laparoscopic Cholecystectomy, Care After Personal Hygiene Stitches, [place], or Adhesive Wound Closure, Jjmt-zi-Qeav Incision Care, Adult, Scxz-zv-Cmoo Preventing Constipation After Surgery Forms: Excuse From Work or School Precautions for COVID19 Patient Portal Social Distancing
--- NOTE | 2019-11-11 23:52 | DR.EXTPAIN ---
HPI Time seen Time Seen by Provider: 10/21/19 12:31 PCP Primary Care Physician: JAXON Complaint/Symptoms Chief Complaint:: pt was here monday and was dx with stones in his gallbladder and was told by er doctor to come back to the er. right side of abd and right upper chest pain COVID-19 Coronavirus risk:travel/contact w/high risk person: No Has patient experienced Coronavirus symptoms: No Source History Provided: Patient Mode of arrival Mode of Arrival: Ambulatory Timing Onset of Chief Complaint: 10/18/19 Associated signs and symptoms Associated Signs and Symptoms: Abdominal Pain PMH PMH Past Medical History: Yes Past Medical History: GERD Past Surgical History: Yes Family History History of Family Medical Conditions: No Family Medical History: Diabetes Mellitus, Cancer and Coronary Artery Disease Social History Does patient currently use any type of tobacco product: No Have you used tobacco products in the last 12 months: No Type of Tobacco Use: None Does any household member use tobacco: No Alcohol Use: Rarely Do you use any recreational Drugs:: No Lives With: Family Lives Where: Home Travel Risk Coronavirus risk:travel/contact w/high risk person: No Has patient experienced Coronavirus symptoms: No Infectious screening In the last 2 months have you had wt loss of >10#?: NO Have you had fever, night sweats or hemotysis?: No Have you traveled outside the country in the last 6 months?: No Isolation: Standard ROS Review of Systems Constitutional: No Symptoms Reported Eyes: No Symptoms Reported ENTM: No Symptoms Reported Respiratoy: No Symptoms Reported Cardiovascular: No Symptoms Reported Gastrointestinal/Abdominal: Abdominal Pain Genitourinary: No Symptoms Reported Neurological: No Symptoms Reported Musculoskeletal: No Symptoms Reported Integumentary: No Symptoms Reported Hematologic/Lymphatic: No Symptoms Reported Endocrine: No Symptoms Reported Psychiatric: No Symptoms Reported All Other Systems: Reviewed and Negative PE Vital Signs Vitals: Temperature 98.3 F Pulse Rate 85 Respiratory Rate 18 Blood Pressure [Left Arm] 155/60 Blood Pressure 138/67 O2 Sat by Pulse Oximetry 99 General Limitations: No Limitations General Appearance: Alert and In No Apparent Distress Head Head Exam: Normal Inspection, Atraumatic and Normocephalic Eyes Eye exam: Normal Appearance and EOMI ENT ENT Exam: Normal Exam and Normal Oropharynx Neck Neck Exam: Normal Inspection, Full ROM and Trachea Midline Chest Chest Inspection: Normal Inspection Respiratory Respiratory Exam: Normal Lung Sounds Bilat; negative Respiratory Distress Respiratory Exam: Bilateral: Clear to Auscultation Cardiovascular Cardiovascular Exam: Regular Rate Abdominal Exam Abdominal Exam: Normal Inspection, Normal Bowel Sounds, Soft and Tenderness; negative Distention and Guarding Abdominal Tenderness: RUQ Extremities Extremities Exam: Normal Inspection and Full ROM Lower Extremities Hip/Pelvis Exam: Normal Inspection Gait Exam: Observed and Normal Back Back Exam: Normal Inspection and Full ROM Neurological Neurological Exam: Alert, Oriented X3, CN II-XII Intact and Normal Gait Psychiatric Psychiatric Exam: Normal Affect Skin Skin Exam: Normal Color ROR Labs Reviewed Result Diagrams: 10/22/19 05:13 10/22/19 05:13 Laboratory: WBC 11.0 X10^3/uL (3.6-10.0) H 10/21/19 13:09 RBC 5.32 X10^6/uL (4.7-6.0) 10/21/19 13:09 Hgb 15.0 g/dL (13.5-18.0) 10/21/19 13:09 Hct 43.9 % (42.0-54.0) 10/21/19 13:09 MCV 82.6 fL (80.0-100.0) 10/21/19 13:09 MCH 28.2 pg (27.0-34.0) 10/21/19 13:09 MCHC 34.1 g/dL (33.0-35.0) 10/21/19 13:09 RDW 14.1 % (11.6-16.5) 10/21/19 13:09 Plt Count 247 X10^3/uL (150.0-450.0) 10/21/19 13:09 Plt Count Comment Adequate (ADEQUATE) 10/21/19 13:09 MPV 7.5 fL (7.4-11.0) 10/21/19 13:09 Neut % (Auto) 63.0 % (42.0-75.0) 10/21/19 13:09 Lymph % (Auto) 26.0 % (21.0-51.0) 10/21/19 13:09 [place] % (Auto) 5.0 % (0.0-13.0) 10/21/19 13:09 Eos % (Auto) 4.8 % (0.9-2.9) H 10/21/19 13:09 Baso % (Auto) 1.2 % (0.2-1.0) H 10/21/19 13:09 Neut # (Auto) 7.0 x10^3/uL (2.2-4.8) H 10/21/19 13:09 Lymph # (Auto) 2.9 X10^3/uL (1.3-2.9) 10/21/19 13:09 [place] # (Auto) 0.6 x10^3/uL (0.3-0.8) 10/21/19 13:09 Eos # (Auto) 0.5 x10^3/uL (0.0-0.2) H 10/21/19 13:09 Baso # (Auto) 0.1 X10^3/uL (0.0-0.1) 10/21/19 13:09 Absolute Nucleated RBC 0.1 /100WBC 10/21/19 13:09 Total Counted 100 10/21/19 13:09 Neutrophils % (Manual) 58 % (39-76) 10/21/19 13:09 Band Neutrophils % 4 % (0-10) 10/21/19 13:09 Lymphocytes % (Manual) 24 % (13-43) 10/21/19 13:09 Monocytes % (Manual) 6 % (4-9) 10/21/19 13:09 Eosinophils % (Manual) 8 % (0-6) H 10/21/19 13:09 Plt Morphology Comment Normal (NORMAL) 10/21/19 13:09 RBC Morphology Normal (NORMAL) 10/21/19 13:09 Sodium 134 mmol/L (136-145) L 10/21/19 13:09 Corrected Sodium TNP 10/21/19 13:09 Potassium 3.9 mmol/L (3.5-5.1) 10/21/19 13:09 Chloride 102 mmol/L (98-107) 10/21/19 13:09 Carbon Dioxide 25.7 mmol/L (21-32) 10/21/19 13:09 BUN 8 mg/dL (7-18) 10/21/19 13:09 Creatinine 0.90 mg/dL (0.70-1.30) 10/21/19 13:09 Est GFR (MDRD) Af Amer > 60 (>60) 10/21/19 13:09 Est GFR (MDRD) Non-Af > 60 (>60) 10/21/19 13:09 Glucose 100 mg/dL (65-99) H 10/21/19 13:09 Calcium 8.9 mg/dL (8.5-10.1) 10/21/19 13:09 Corrected Calcium TNP 10/21/19 13:09 Total Bilirubin 0.50 mg/dL (0.2-1.0) 10/21/19 13:09 AST 44 Units/L (15-37) H 10/21/19 13:09 ALT 71 Units/L (12-78) 10/21/19 13:09 Alkaline Phosphatase 86 Units/L (46-116) 10/21/19 13:09 Total Protein 7.6 g/dL (6.4-8.2) 10/21/19 13:09 Albumin 3.4 g/dL (3.4-5.0) 10/21/19 13:09 Globulin 4.2 g/dL (2.5-4.5) 10/21/19 13:09 Albumin/Globulin Ratio 0.8 Ratio (1.1-2.1) L 10/21/19 13:09 Lipase 144 Units/L (73-393) 10/21/19 13:09 Tissue Pathology To follow 10/21/19 16:55 Opioid Opioid Risk Tool Age (Cory box if 16-45): Yes History of Preadolescent Sexual Abuse: No Total: 1 Total Score Risk Category: Low Risk Copyright: Bandar SANCHEZ predicting aberrant behaviors Diagnosis Discharge Problem: Abdominal pain in male Cholelithiasis Qualifiers: Cholelithiasis location: gallbladder Cholecystitis presence: without cholecystitis Biliary obstruction: without biliary obstruction Qualified Code(s): K80.20 - Calculus of gallbladder without cholecystitis without obstruction Instructions Instructions: Incentive Spirometer Wound Infection, Zsxi-iy-Jxpu Hand Washing, Bcfh-be-Xzhe How to Change Your Dressing, Zrwg-xc-Gkcj Laparoscopic Cholecystectomy, Care After Personal Hygiene Stitches, Nani, or Adhesive Wound Closure, Qbjl-el-Ucvt Incision Care, Adult, Lzje-iq-Hjny Preventing Constipation After Surgery Forms: Excuse From Work or School Precautions for COVID19 Patient Portal Social Distancing
== END 2019-10-22 11:25 | disposition home or self-care (01) ==
LOC: ER 12:22 → MED/SURG 14:34 → SURG1 14:34
PROVIDERS: ADMIT Surgery; ATTEND Surgery
DX: R16.0 Hepatomegaly, not elsewhere classified; K21.9 Gastro-esophageal reflux disease without esophagitis; K76.0 Fatty (change of) liver, not elsewhere classified; R10.13 Epigastric pain; K80.01 Calculus of gallbladder with acute cholecystitis with obstruction; E66.01 Morbid (severe) obesity due to excess calories; R10.11 Right upper quadrant pain

== ENCOUNTER 2022-04-07 15:01 | Observation (INO) ==
--- NOTE | 2022-04-07 15:29 | DR.GIBLEED ---
HPI Time Seen Time Seen by Provider: 04/07/22 15:29 Primary Care Physician Primary Care Physician: DR RING Complaints Chief Complaint Doctors Comments: 41 y/o male presents for evaluation. Had a colonscopy 10 days ago, had a polyp removed. Developed lower GI bleeding yesterday. Having frequent episodes of bloody BMs. Having minimal LLQ discomfort, dull, does not radiate. Nothing makes it better, nothing makes it worse. Denies nausea, vomiting, dizziness, bleeding from other sites.+ h/o diverticulosis, seen on scope. Chief Complaint:: PT HAD COLONOSCOPY WITH DR FERNANDEZ ON 03/29/22 AND HAD 6MM POLYP REMOVED. PT STATES THAT YESTERDAY AFTERNOON HE HAD SOME GENERALIZED ABDOMINAL CRAMPING AND HAD A BM AND NOTICED A MODERATE AMOUNT OF BRIGHT RED BLOOD PER RECTUM. PT STATES THAT THIS CONTINUED ONLY WHEN HE WIPED TWICE AND THEN THE THIRD TIME HE WENT TO THE BATHROOM HE NOTICED LOTS OF BIG BLOOD CLOTS IN THE TOILET. COVID-19 Coronavirus risk:travel/contact w/high risk person: No Has patient experienced Coronavirus symptoms: No Reviewed Nurses Notes Reviewed: Yes Source History Provided: Patient Mode of Arrival Mode of Arrival: Ambulatory Timing Onset of Chief Complaint: 04/07/22 Quality Vomitus: Bright Red Blood Stools: IN TOILET PMH PMH Past Medical History: Yes Past Medical History: GERD Past Medical History Comment: DIVERTICULITIS Past Surgical History: Yes Surgical History: Cholecystectomy Family History History of Family Medical Conditions: Yes Family Medical History: Cancer, [place] and Coronary Artery Disease Family Medical History Comment: COLON CANCER Social History Does patient currently use any type of tobacco product: No Have you used tobacco products in the last 12 months: No Type of Tobacco Use: None Does any household member use tobacco: No Alcohol Use: Occasionally Do you use any recreational Drugs:: No Lives With: Spouse Lives Where: Home Travel Risk Coronavirus risk:travel/contact w/high risk person: No Has patient experienced Coronavirus symptoms: No Infectious screening In the last 2 months have you had wt loss of >10#?: NO Have you had fever, night sweats or hemotysis?: No Have you traveled outside the country in the last 6 months?: No Isolation: Standard ROS Review of Systems Constitutional: No Symptoms Reported Eyes: No Symptoms Reported ENTM: No Symptoms Reported Respiratoy: No Symptoms Reported Cardiovascular: No Symptoms Reported Gastrointestinal/Abdominal: See HPI Genitourinary: No Symptoms Reported Neurological: No Symptoms Reported Musculoskeletal: No Symptoms Reported Integumentary: No Symptoms Reported Hematologic/Lymphatic: No Symptoms Reported Psychiatric: No Symptoms Reported All Other Systems: Reviewed and Negative PE Vital Signs Vitals: Temperature 98.9 F Pulse Rate 78 Respiratory Rate 20 Blood Pressure [Right Arm] 114/67 Blood Pressure 144/86 O2 Sat by Pulse Oximetry 100 General General Appearance: Alert and In No Apparent Distress Eyes Eye exam: PERRL and EOMI ENT ENT Exam: Mucous Membranes Moist Neck Neck Exam: Normal Inspection Chest Chest Inspection: Normal Inspection Respiratory Respiratory Exam: Normal Lung Sounds Bilat; negative Accessory Muscle Use or Respiratory Distress Cardiovascular Cardiovascular Exam: Regular Rate, Normal Rhythm and Normal Heart Sounds Abdominal Exam Abdominal Exam: Normal Bowel Sounds, Soft and Tenderness (minimal, LLQ, no guarding or rebound) Extremities Extremities Exam: Normal Inspection Back Back Exam: Normal Inspection Neurologic Neurological Exam: Alert, Oriented X3 and CN II-XII Intact; negative Motor Sensory Deficit Psychiatric Psychiatric Exam: Normal Affect Skin Skin Exam: Warm and Dry COURSE Treatment Treatment: 41 y/o presents with lower GI bleeding, had polypectomy 10 days ago. Looks good, vitals stable. W/u initiated, given IV fluids. 1750 - labs acceptable. Notified is GI MD, Dr Wan. Recomend pt be admitted for 48 hours, continue IV fluids, keep on clear liquid diet. Discussed with Dr Potts, will admit. ROR Labs Reviewed Laboratory Results Reviewed?: Yes Result Diagrams: 04/07/22 15:40 04/07/22 15:40 Laboratory: WBC 6.0 X10^3/uL (3.6-10.0) 04/07/22 15:40 RBC 4.90 X10^6/uL (4.7-6.0) 04/07/22 15:40 Hgb 14.0 g/dL (13.5-18.0) 04/07/22 15:40 Hct 40.1 % (42.0-54.0) L 04/07/22 15:40 MCV 81.8 fL (80.0-100.0) 04/07/22 15:40 MCH 28.5 pg (27.0-34.0) 04/07/22 15:40 MCHC 34.9 g/dL (33.0-35.0) 04/07/22 15:40 RDW 14.0 % (11.6-16.5) 04/07/22 15:40 Plt Count 214 X10^3/uL (150.0-450.0) 04/07/22 15:40 MPV 7.3 fL (7.4-11.0) L 04/07/22 15:40 Neut % (Auto) 44.4 % (42.0-75.0) 04/07/22 15:40 Lymph % (Auto) 38.1 % (21.0-51.0) 04/07/22 15:40 [place] % (Auto) 12.6 % (0.0-13.0) 04/07/22 15:40 Eos % (Auto) 3.6 % (0.9-2.9) H 04/07/22 15:40 Baso % (Auto) 1.3 % (0.2-1.0) H 04/07/22 15:40 Neut # (Auto) 2.7 x10^3/uL (2.2-4.8) 04/07/22 15:40 Lymph # (Auto) 2.3 X10^3/uL (1.3-2.9) 04/07/22 15:40 [place] # (Auto) 0.8 x10^3/uL (0.3-0.8) 04/07/22 15:40 Eos # (Auto) 0.2 x10^3/uL (0.0-0.2) 04/07/22 15:40 Baso # (Auto) 0.1 X10^3/uL (0.0-0.1) 04/07/22 15:40 Absolute Nucleated RBC 0.1 /100WBC 04/07/22 15:40 PT 15.7 SECONDS (11.8-14.3) 04/07/22 15:40 INR Target Range - 04/07/22 15:40 INR 1.30 (0.8-1.3) 04/07/22 15:40 APTT 33.7 SECONDS (22.9-36.5) 04/07/22 15:40 PTT Comment - 04/07/22 15:40 Sodium 136 mmol/L (136-145) 04/07/22 15:40 Corrected Sodium TNP 04/07/22 15:40 Potassium 3.9 mmol/L (3.5-5.1) 04/07/22 15:40 Chloride 101 mmol/L (98-107) 04/07/22 15:40 Carbon Dioxide 27.8 mmol/L (21-32) 04/07/22 15:40 BUN 12 mg/dL (7-18) 04/07/22 15:40 Creatinine 0.82 mg/dL (0.70-1.30) 04/07/22 15:40 Est GFR (MDRD) Af Amer > 60 (>60) 04/07/22 15:40 Est GFR (MDRD) Non-Af > 60 (>60) 04/07/22 15:40 Glucose 92 mg/dL (65-99) 04/07/22 15:40 Calcium 8.0 mg/dL (8.5-10.1) L 04/07/22 15:40 Corrected Calcium TNP 04/07/22 15:40 Total Bilirubin 0.50 mg/dL (0.2-1.0) 04/07/22 15:40 AST 85 Units/L (15-37) H 04/07/22 15:40 ALT 114 Units/L (12-78) H 04/07/22 15:40 Alkaline Phosphatase 71 Units/L (46-116) 04/07/22 15:40 Total Protein 7.2 g/dL (6.4-8.2) 04/07/22 15:40 Albumin 3.5 g/dL (3.4-5.0) 04/07/22 15:40 Globulin 3.7 g/dL (2.5-4.5) 04/07/22 15:40 Albumin/Globulin Ratio 0.9 Ratio (1.1-2.1) L 04/07/22 15:40 Labs acceptable. Opioid Opioid Risk Tool Age (Cory box if 16-45): No History of Preadolescent Sexual Abuse: No Total: 0 Total Score Risk Category: Low Risk Copyright: Bandar SANCHEZ predicting aberrant behaviors Discharge Plan Diagnosis Discharge Problem: Acute lower GI bleeding Discharge Plan Patient Disposition: 09 ADMITTED INPATIENT Condition: Stable Prescriptions: No Action fluticasone furoate-vilanterol [Breo Ellipta] 100-25 mcg/dose blister with device 1 puff inhalation QDAY Health Concerns: Post Hospitalization: new medications and changes needed to prevent readmission or further decline. Pt educated and given instructions on all concerns. Plan of Treatment: Continue with present treatment and follow up plan. Pt is to keep follow up appointment as instructed and take medications as ordered. Orders to Discharge Patient Discharge Orders: Transfer (Routine); Ordered 04/07/22 Ordered By: Calvin Hodges Follow ups/Referrals Follow ups/Referrals: [facility],None [Primary Care Provider] - 3 days
[2022-04-07] MEDS ORDERED: NS 1,000 ML IV 1,000 ML IV ONE (15:31)
[2022-04-07] MEDS ORDERED: NS 1,000 ML IV 1,000 ML ONE (15:37)
[2022-04-07 15:53] LABS: BASOPHILS # (AUTO) 0.1 X10^3/uL (0.0-0.1); BASOPHILS % (AUTO) 1.3 % (0.2-1.0); EOSINOPHILS # (AUTO) 0.2 x10^3/uL (0.0-0.2); EOSINOPHILS % (AUTO) 3.6 % (0.9-2.9); HEMATOCRIT 40.1 % (42.0-54.0); LYMPHOCYTES # (AUTO) 2.3 X10^3/uL (1.3-2.9); LYMPHOCYTES % (AUTO) 38.1 % (21.0-51.0); MEAN CORPUSCULAR HEMOGLOBIN 28.5 pg (27.0-34.0); MEAN CORPUSCULAR HGB CONC 34.9 g/dL (33.0-35.0); MEAN CORPUSCULAR VOLUME 81.8 fL (80.0-100.0); MEAN PLATELET VOLUME 7.3 fL (7.4-11.0); MONOCYTES # (AUTO) 0.8 x10^3/uL (0.3-0.8); MONOCYTES % (AUTO) 12.6 % (0.0-13.0); NEUTROPHILS # (AUTO) 2.7 x10^3/uL (2.2-4.8); NEUTROPHILS % (AUTO) 44.4 % (42.0-75.0)
[2022-04-07 16:03] LABS: ALANINE AMINOTRANSFERASE 114 Units/L (12-78); ALBUMIN 3.5 g/dL (3.4-5.0); ALKALINE PHOSPHATASE 71 Units/L (46-116); ASPARTATE AMINO TRANSFERASE 85 Units/L (15-37); BLOOD UREA NITROGEN 12 mg/dL (7-18); CARBON DIOXIDE 27.8 mmol/L (21-32); CHLORIDE 101 mmol/L (98-107); CREATININE 0.82 mg/dL (0.70-1.30); SODIUM 136 mmol/L (136-145); TOTAL PROTEIN 7.2 g/dL (6.4-8.2); eGFR NON BLACK RACES > 60 (>60)
--- NOTE | 2022-04-07 18:19 | DR.GIBLEED ---
HPI Time Seen Time Seen by Provider: 04/07/22 15:29 Primary Care Physician Primary Care Physician: DR RING Complaints Chief Complaint:: PT HAD COLONOSCOPY WITH DR FERNANDEZ ON 03/29/22 AND HAD 6MM POLYP REMOVED. PT STATES THAT YESTERDAY AFTERNOON HE HAD SOME GENERALIZED ABDOMINAL CRAMPING AND HAD A BM AND NOTICED A MODERATE AMOUNT OF BRIGHT RED BLOOD PER RECTUM. PT STATES THAT THIS CONTINUED ONLY WHEN HE WIPED TWICE AND THEN THE THIRD TIME HE WENT TO THE BATHROOM HE NOTICED LOTS OF BIG BLOOD CLOTS IN THE TOILET. COVID-19 Coronavirus risk:travel/contact w/high risk person: No Has patient experienced Coronavirus symptoms: No Source History Provided: Patient Mode of Arrival Mode of Arrival: Ambulatory Timing Onset of Chief Complaint: 04/07/22 Quality Vomitus: Bright Red Blood Stools: IN TOILET PMH PMH Past Medical History: Yes Past Medical History: GERD Past Medical History Comment: DIVERTICULITIS Past Surgical History: Yes Surgical History: Cholecystectomy Family History History of Family Medical Conditions: Yes Family Medical History: Cancer, [place] and Coronary Artery Disease Family Medical History Comment: COLON CANCER Social History Does patient currently use any type of tobacco product: No Have you used tobacco products in the last 12 months: No Type of Tobacco Use: None Does any household member use tobacco: No Alcohol Use: Occasionally Do you use any recreational Drugs:: No Lives With: Spouse Lives Where: Home Travel Risk Coronavirus risk:travel/contact w/high risk person: No Has patient experienced Coronavirus symptoms: No Infectious screening In the last 2 months have you had wt loss of >10#?: NO Have you had fever, night sweats or hemotysis?: No Have you traveled outside the country in the last 6 months?: No Isolation: Standard PE Vital Signs Vitals: Temperature 98.9 F Pulse Rate 78 Respiratory Rate 20 Blood Pressure [Right Arm] 114/67 Blood Pressure 144/86 O2 Sat by Pulse Oximetry 100 ROR Labs Reviewed Result Diagrams: 04/09/22 05:45 04/09/22 05:45 Laboratory: WBC 6.0 X10^3/uL (3.6-10.0) 04/07/22 15:40 RBC 4.90 X10^6/uL (4.7-6.0) 04/07/22 15:40 Hgb 14.0 g/dL (13.5-18.0) 04/07/22 15:40 Hct 40.1 % (42.0-54.0) L 04/07/22 15:40 MCV 81.8 fL (80.0-100.0) 04/07/22 15:40 MCH 28.5 pg (27.0-34.0) 04/07/22 15:40 MCHC 34.9 g/dL (33.0-35.0) 04/07/22 15:40 RDW 14.0 % (11.6-16.5) 04/07/22 15:40 Plt Count 214 X10^3/uL (150.0-450.0) 04/07/22 15:40 MPV 7.3 fL (7.4-11.0) L 04/07/22 15:40 Neut % (Auto) 44.4 % (42.0-75.0) 04/07/22 15:40 Lymph % (Auto) 38.1 % (21.0-51.0) 04/07/22 15:40 [place] % (Auto) 12.6 % (0.0-13.0) 04/07/22 15:40 Eos % (Auto) 3.6 % (0.9-2.9) H 04/07/22 15:40 Baso % (Auto) 1.3 % (0.2-1.0) H 04/07/22 15:40 Neut # (Auto) 2.7 x10^3/uL (2.2-4.8) 04/07/22 15:40 Lymph # (Auto) 2.3 X10^3/uL (1.3-2.9) 04/07/22 15:40 [place] # (Auto) 0.8 x10^3/uL (0.3-0.8) 04/07/22 15:40 Eos # (Auto) 0.2 x10^3/uL (0.0-0.2) 04/07/22 15:40 Baso # (Auto) 0.1 X10^3/uL (0.0-0.1) 04/07/22 15:40 Absolute Nucleated RBC 0.1 /100WBC 04/07/22 15:40 PT 15.7 SECONDS (11.8-14.3) 04/07/22 15:40 INR Target Range - 04/07/22 15:40 INR 1.30 (0.8-1.3) 04/07/22 15:40 APTT 33.7 SECONDS (22.9-36.5) 04/07/22 15:40 PTT Comment - 04/07/22 15:40 Sodium 136 mmol/L (136-145) 04/07/22 15:40 Corrected Sodium TNP 04/07/22 15:40 Potassium 3.9 mmol/L (3.5-5.1) 04/07/22 15:40 Chloride 101 mmol/L (98-107) 04/07/22 15:40 Carbon Dioxide 27.8 mmol/L (21-32) 04/07/22 15:40 BUN 12 mg/dL (7-18) 04/07/22 15:40 Creatinine 0.82 mg/dL (0.70-1.30) 04/07/22 15:40 Est GFR (MDRD) Af Amer > 60 (>60) 04/07/22 15:40 Est GFR (MDRD) Non-Af > 60 (>60) 04/07/22 15:40 Glucose 92 mg/dL (65-99) 04/07/22 15:40 Calcium 8.0 mg/dL (8.5-10.1) L 04/07/22 15:40 Corrected Calcium TNP 04/07/22 15:40 Total Bilirubin 0.50 mg/dL (0.2-1.0) 04/07/22 15:40 AST 85 Units/L (15-37) H 04/07/22 15:40 ALT 114 Units/L (12-78) H 04/07/22 15:40 Alkaline Phosphatase 71 Units/L (46-116) 04/07/22 15:40 Total Protein 7.2 g/dL (6.4-8.2) 04/07/22 15:40 Albumin 3.5 g/dL (3.4-5.0) 04/07/22 15:40 Globulin 3.7 g/dL (2.5-4.5) 04/07/22 15:40 Albumin/Globulin Ratio 0.9 Ratio (1.1-2.1) L 04/07/22 15:40 Blood Type A POSITIVE 04/07/22 15:40 Opioid Opioid Risk Tool Age (Cory box if 16-45): No History of Preadolescent Sexual Abuse: No Total: 0 Total Score Risk Category: Low Risk Copyright: Bandar SANCHEZ predicting aberrant behaviors Discharge Plan Diagnosis Discharge Problem: Acute lower GI bleeding Discharge Plan Patient Disposition: 09 ADMITTED INPATIENT Condition: Stable Orders to Discharge Patient Discharge Orders: Discharge (Routine); Ordered 04/09/22 Ordered By: TILA BOOGIE
[2022-04-07] MEDS ORDERED: PATIENT'S HOME MEDICATION (Fluticasone Furoate-Vilanterol [Breo Ellipta] 100-25 mcg/dose b IN SCH (19:19)
[2022-04-07] MEDS: D5 1/2 NS 1,000 ML 1,000 ML IV SCH (19:41)
[2022-04-07 20:17] VITALS: BMI 44.4
[2022-04-07] MEDS: PULMICORT NEB TX 0.5 MG NEB SCH (21:12)
[2022-04-07] MEDS: PROVENTIL NEB TX 0.083% 2.5MG/ 3ML NEB SCH (21:13)
[2022-04-08] MEDS: D5 1/2 NS 1,000 ML 1,000 ML IV SCH (03:52)
[2022-04-08 06:25] LABS: BASOPHILS % (AUTO) 0.9 % (0.2-1.0); EOSINOPHILS # (AUTO) 0.3 x10^3/uL (0.0-0.2); EOSINOPHILS % (AUTO) 5.5 % (0.9-2.9); HEMATOCRIT 37.4 % (42.0-54.0); HEMOGLOBIN 13.3 g/dL (13.5-18.0); LYMPHOCYTES % (AUTO) 39.2 % (21.0-51.0); MEAN CORPUSCULAR HEMOGLOBIN 28.7 pg (27.0-34.0); MEAN CORPUSCULAR HGB CONC 35.4 g/dL (33.0-35.0); MEAN PLATELET VOLUME 7.6 fL (7.4-11.0); MONOCYTES # (AUTO) 0.6 x10^3/uL (0.3-0.8); MONOCYTES % (AUTO) 11.3 % (0.0-13.0); NEUTROPHILS # (AUTO) 2.2 x10^3/uL (2.2-4.8); NEUTROPHILS % (AUTO) 43.1 % (42.0-75.0); RED BLOOD COUNT 4.62 X10^6/uL (4.7-6.0); RED CELL DISTRIBUTION WIDTH 13.9 % (11.6-16.5)
[2022-04-08 06:34] LABS: ALANINE AMINOTRANSFERASE 106 Units/L (12-78); ALKALINE PHOSPHATASE 64 Units/L (46-116); ASPARTATE AMINO TRANSFERASE 68 Units/L (15-37); BLOOD UREA NITROGEN 9 mg/dL (7-18); CALCIUM 7.7 mg/dL (8.5-10.1); CARBON DIOXIDE 28.5 mmol/L (21-32); CHLORIDE 104 mmol/L (98-107); COR CA(FOR HYPOALB) 8.5 mg/dL (8.5-10.1); CREATININE 0.78 mg/dL (0.70-1.30); SODIUM 138 mmol/L (136-145); TOTAL PROTEIN 6.4 g/dL (6.4-8.2); eGFR NON BLACK RACES > 60 (>60)
[2022-04-08] MEDS: PROVENTIL NEB TX 0.083% 2.5MG/ 3ML NEB SCH ×3 (08:15→20:20)
[2022-04-08] MEDS: PULMICORT NEB TX 0.5 MG NEB SCH ×2 (08:15→20:20)
[2022-04-08] MEDS: LR 1,000 ML IV 1,000 ML IV SCH ×3 (09:23→20:16)
[2022-04-08] MEDS: FLAGYL IV PREMIX 500 MG BAG 500 MG/100 ML BAG IV SCH ×3 (09:27→21:14)
[2022-04-08] MEDS: LEVAQUIN PREMIX IV 750 MG 750 MG/150 ML BAG IV SCH (10:26)
[2022-04-08] MEDS ORDERED: K-RIDER 10 MEQ/NS 100 ML 10 MEQ/100 ML BAG IV PRN (11:04)
[2022-04-08] MEDS ORDERED: POTASSIUM CHL 40 MEQ/NS 0.45% 500 ML IV PRN (11:04)
[2022-04-08] MEDS ORDERED: KLOR-CON PO PRN (11:04)
[2022-04-08] MEDS ORDERED: K-DUR TAB 20 MEQ PO PRN (11:04)
[2022-04-08] MEDS ORDERED: MAGNESIUM SULFATE 1 GRAM/100 mL PREMIX 1 G/100 ML BAG IV PRN (11:04)
[2022-04-08] MEDS ORDERED: POTASSIUM CHL 60 MEQ/NS 0.45% 500 ML IV PRN (11:04)
[2022-04-08] MEDS ORDERED: MICRO K EXTEN CAP 10 MEQ PO PRN (11:04)
[2022-04-08] MEDS: POTASSIUM CHLORIDE LIQ 20 MEQ UDC PO PRN ×2 (12:12→16:42)
[2022-04-08] MEDS ORDERED: PULMICORT NEB TX 0.5 MG NEB ONE (19:33)
[2022-04-09] MEDS: FLAGYL IV PREMIX 500 MG BAG 500 MG/100 ML BAG IV SCH (02:01)
[2022-04-09] MEDS: LR 1,000 ML IV 1,000 ML IV SCH (03:17)
[2022-04-09 06:31] LABS: BASOPHILS % (AUTO) 0.9 % (0.2-1.0); EOSINOPHILS # (AUTO) 0.2 x10^3/uL (0.0-0.2); EOSINOPHILS % (AUTO) 3.7 % (0.9-2.9); HEMATOCRIT 37.9 % (42.0-54.0); HEMOGLOBIN 13.1 g/dL (13.5-18.0); LYMPHOCYTES # (AUTO) 1.9 X10^3/uL (1.3-2.9); LYMPHOCYTES % (AUTO) 34.5 % (21.0-51.0); MEAN CORPUSCULAR HEMOGLOBIN 28.6 pg (27.0-34.0); MEAN CORPUSCULAR HGB CONC 34.7 g/dL (33.0-35.0); MEAN CORPUSCULAR VOLUME 82.5 fL (80.0-100.0); MEAN PLATELET VOLUME 7.5 fL (7.4-11.0); MONOCYTES # (AUTO) 0.5 x10^3/uL (0.3-0.8); MONOCYTES % (AUTO) 8.2 % (0.0-13.0); NEUTROPHILS % (AUTO) 52.7 % (42.0-75.0); RED BLOOD COUNT 4.59 X10^6/uL (4.7-6.0); RED CELL DISTRIBUTION WIDTH 14.1 % (11.6-16.5); WHITE BLOOD COUNT 5.6 X10^3/uL (3.6-10.0)
[2022-04-09 06:50] LABS: ALANINE AMINOTRANSFERASE 118 Units/L (12-78); ALBUMIN 3.1 g/dL (3.4-5.0); ALKALINE PHOSPHATASE 66 Units/L (46-116); ASPARTATE AMINO TRANSFERASE 71 Units/L (15-37); BLOOD UREA NITROGEN 8 mg/dL (7-18); CALCIUM 8.1 mg/dL (8.5-10.1); CARBON DIOXIDE 26.2 mmol/L (21-32); CHLORIDE 106 mmol/L (98-107); COR CA(FOR HYPOALB) 8.8 mg/dL (8.5-10.1); CREATININE 0.85 mg/dL (0.70-1.30); SODIUM 139 mmol/L (136-145); TOTAL PROTEIN 6.5 g/dL (6.4-8.2); eGFR NON BLACK RACES > 60 (>60)
[2022-04-09] MEDS: PROVENTIL NEB TX 0.083% 2.5MG/ 3ML NEB SCH (09:10)
[2022-04-09] MEDS: PULMICORT NEB TX 0.5 MG NEB SCH (09:10)
[2022-04-09] MEDS: LEVAQUIN PREMIX IV 750 MG 750 MG/150 ML BAG IV SCH (10:03)
[2022-04-09 10:50] VITALS: BP 131/71
== END 2022-04-09 12:30 | disposition home or self-care (01) ==
LOC: ER 15:01 → MED/SURG 15:01
PROVIDERS: ADMIT Obstetrics & Gynecology Obstetrics; ATTEND Obstetrics & Gynecology Obstetrics
DX: K92.2 Gastrointestinal hemorrhage, unspecified; K52.89 Other specified noninfective gastroenteritis and colitis; Z98.890 Other specified postprocedural states